=== PATIENT | male | born 1945 | race Asian ===

== ENCOUNTER 2019-11-01 07:47 | Day surgery (SDC) | payer MEDICARE, OTHER ==
[2019-10-31 10:59] VITALS: BMI 28.1
--- NOTE | 2019-11-01 10:24 | HP ---
History & Physical Update - History History: No Change - Physical Physical: No Change - Assessment Assessment: No Change - Plan Plan: No Change
[2019-11-01] MEDS ORDERED: fentaNYL CITRATE 250 MCG/5 ML VIAL ONE (10:48)
[2019-11-01] MEDS ORDERED: MIDAZOLAM HCL 2 MG/2 ML SINGLE DOSE VIAL ONE (10:48)
[2019-11-01] MEDS ORDERED: ceFAZolin SODIUM 1 GM VIAL IVPB ONE (11:10)
[2019-11-01] MEDS ORDERED: BUPIVACAINE HCL/PF 0.5% (5 MG/ML) 30 ML VIAL IJ ONE (11:17)
[2019-11-01] MEDS ORDERED: DESFLURANE GAS 240 ML BOTTLE IH ONE (12:33)
[2019-11-01] MEDS ORDERED: ceFAZolin SODIUM 1 GM VIAL ONE (12:34)
[2019-11-01] MEDS ORDERED: ePHEDrine SULFATE 50 MG/1 ML AMPULE ONE (12:34)
[2019-11-01] MEDS ORDERED: SODIUM CHLORIDE 0.9% P/F 10 ML VIAL IJ ONE (12:34)
[2019-11-01] MEDS ORDERED: LIDOCAINE HCL/PF 2% SDV 5ML VIAL ONE (12:34)
[2019-11-01] MEDS ORDERED: DEXAMETHASONE SOD PHOSPHATE 4 MG/1 ML VIAL ONE (12:34)
[2019-11-01] MEDS ORDERED: LIDOCAINE HCL 2% JELLY (5 ML/TUBE) ONE (12:34)
[2019-11-01] MEDS ORDERED: NEOSTIGMINE METHYLSULFATE 0.5 MG/ML - 10 ML MDV ONE (13:03)
[2019-11-01] MEDS ORDERED: GLYCOPYRROLATE 0.2 MG/1 ML VIAL ONE (13:03)
--- NOTE | 2019-11-01 13:20 | OP ---
Operative Note - Note: Operative Date: 11/01/19 Pre-Operative Diagnosis: LIH Operation: Robotic bilateral inguinal hernia repair with mesh Findings: left indirect and right direct IH Implants: progrip mesh Post-Operative Diagnosis: Other (Bilateral inguinal hernias) Surgeon: Adam Chowdhury [employer] Sales Counterperson: Maite Whitehead Anesthesia: General Estimated Blood Loss (mls): 20 Operative Report Dictated: Yes
[2019-11-01] MEDS ORDERED: oxyCODONE HCL 5 MG TABLET PO PRN (13:58)
[2019-11-01] MEDS ORDERED: PROMETHAZINE HCL 25 MG/1 ML VIAL IVPB PRN (13:58)
[2019-11-01] MEDS ORDERED: ONDANSETRON 4 MG/2 ML VIAL IVPUSH PRN (13:58)
--- NOTE | 2019-11-01 14:08 | SURG ---
Surgery Front Man Note Front Man: Maite Whitehead PA-C Date of Service: 11/01/19 Diagnosis: Robotic bilateral inguinal hernia repair with mesh Procedure: Robotic bilateral inguinal hernia repair with mesh I was present for the entirety of the operative procedure. For further detail, please refer to operative report. Visit type - Case Type Case Type: Scheduled - Emergency Emergency Visit: No - New patient This patient is new to me today: Yes Date on this admission: 11/01/19
--- NOTE | 2019-11-01 14:32 | OP ---
DATE OF OPERATION: 11/01/2019 PROCEDURE: Robotic-assisted laparoscopic bilateral inguinal hernia repair with mesh. PREOPERATIVE DIAGNOSIS: Left inguinal hernia. Rule out bilateral inguinal hernia. POSTOPERATIVE DIAGNOSIS: Bilateral inguinal hernia. SURGEON: Adam Chowdhury MD THERMOMETER MAKER: ARINA Page ANESTHESIA: General endotracheal. FINDINGS AND PROCEDURE: This is a 74-year-old, male who presented with bilateral inguinal pain, after lifting an object at home while doing work at home. On physical exam, patient has a bulge on the left inguinal region; however, he has a questionable endpoint only on the right inguinal area. Review of his CT scan in 2018 revealed bilateral, small, fat-containing inguinal hernia. So, patient was advised robotic inguinal hernia repair, possible bilateral repair. Consent was obtained, after discussing the risks, benefits, and alternatives to the procedure. The patient was brought to the operating room and placed in a supine position. General endotracheal anesthesia was administered. The abdomen was prepped and draped in the usual sterile fashion. Using 0.5% Marcaine, local anesthesia was administered to the proposed incision sites. The peritoneal cavity was entered using the Veress needle technique via an 8-mm supraumbilical incision. A pneumoperitoneum was established. An 8-mm port was inserted, followed by insertion of the 0-degree 3 -D laparoscope. The peritoneal cavity was carefully inspected and was noted to be free of inadvertent injury. The patient was then placed in Trendelenburg position and the left side indirect inguinal hernia was identified and a direct inguinal hernia was identified on the right side. Two 8-mm ports were inserted 8 cm away from the supraumbilical port on each side. The target organ was set and robotic arms were docked. A fenestrated bipolar forceps was inserted in the left-sided port and EndoWrist Wendy connected to monopolar cautery was inserted in the right-sided port. The undersigned scrubbed out to commence the console part of the procedure. The left-sided hernia was addressed first, by incising the parietal peritoneum at the level of the anterior-superior iliac spine using the EndoWrist Wendy. A pocket was then created toward the inguinal canal with combined sharp and blunt dissection using the inferior epigastric vessel as the landmarks. The hernia sac together with the lipoma of the cord was isolated from the spermatic cord structures at least 7 cm away from the attenuated internal ring. Dissection was carried laterally toward the anterior-superior iliac spine. The dissection was further carried medially toward the underside of the symphysis pubis. After the dissection was deemed satisfactory, a 15 x 10-cm ProGrip mesh was deployed to cover both the indirect hernia and the inguinal floor as well as the femoral canal. The peritoneal pocket was closed with a continuous 2-0 absorbable V-Loc suture. The right-sided hernia was again repaired in the same manner and a right-sided 15 x 10-cm ProGrip mesh was deployed to cover the inguinal floor, the internal ring, and the femoral canal. The pocket was also closed with continuous V-Loc 2-0 absorbable suture. The peritoneal cavity was carefully inspected and was noted to be free of active bleeding. The instruments were removed, the robotic arms were undocked, and the pneumoperitoneum was evacuated. The ports were removed and the wounds were closed with subcuticular Biosyn 4-0 sutures reinforced with Dermabond. Patient was successfully extubated and transferred to the postanesthesia care unit in satisfactory condition. ESTIMATED BLOOD LOSS: About 20 mL. WOUND CLASS: Clean; the patient received a gram of Ancef prior to the start of the procedure. Jerome [id number] MTDD
[2019-11-01 15:24] VITALS: TEMP 97.9
[2019-11-01 16:53] VITALS: BP 120/67; PULSE 72
== END 2019-11-01 16:55 | disposition home or self-care (01) ==
LOC: JASU-SURG 07:47
PROVIDERS: ATTEND Surgery
PROC: 8E0W4CZ Robotic Assisted Procedure of Trunk Region, Percutaneous Endoscopic Approach (ICD-10-PCS; 2019-11-01)
PROC: 0YUA4JZ Supplement Bilateral Inguinal Region with Synthetic Substitute, Percutaneous Endoscopic Approach (ICD-10-PCS; principal; 2019-11-01 10:00)
DX: K40.20 Bilateral inguinal hernia, without obstruction or gangrene, not specified as recurrent (principal); I10 Essential (primary) hypertension; E11.9 Type 2 diabetes mellitus without complications
CPT/HCPCS: 49650; S2900; 86900; 94760

== ENCOUNTER 2022-03-01 04:33 | Day surgery (SDC) | payer OTHER ==
[2022-03-01 11:24] LABS: EOS % 1.7 % (0-4.5); HEMATOCRIT 41.4 % (35.4-49); HEMOGLOBIN 13.7 GM/dL (11.7-16.9); LYMPH % 26.5 % (8-40); MCH 28.4 pg (25.7-33.7); MEAN PLT VOLUME 7.4 fl (7.5-11.1); MONO % 10.6 % (3.8-10.2); NEUT % 60.2 % (42.8-82.8); PLATELET COUNT 185 10^3/uL (134-434); RBC 4.81 M/mm3 (4.00-5.60); RDW 16.4 % (11.9-15.9); WHITE BLOOD COUNT 4.9 K/mm3 (4.0-10.0)
[2022-03-01 11:48] LABS: ACTIVATED PTT 35.3 SECONDS (25.2-36.5); INR 1.3 (0.83-1.09)
[2022-03-01 11:50] LABS: BLOOD UREA NITROGEN 16.5 mg/dL (7-18); CALCIUM 9.3 mg/dL (8.5-10.1)
[2022-03-01 11:51] LABS: ALBUMIN 3.6 g/dl (3.4-5.0)
[2022-03-01 11:55] LABS: BILIRUBIN,TOTAL 0.6 mg/dL (0.2-1); CREATININE 0.8 mg/dL (0.55-1.3); TOT PROT 6.8 g/dl (6.4-8.2)
== END 2022-03-01 11:40 | disposition home or self-care (01) ==
LOC: JOR 04:33 → JASU-ENDO 04:33
PROVIDERS: ATTEND Internal Medicine
DX: Z53.8 Procedure and treatment not carried out for other reasons (principal)
CPT/HCPCS: 36415; 80053; 85025; 85610; 85730